=== PATIENT | female | born 1950 | race Hispanic/Latino ===

== ENCOUNTER → 2017-11-18 | Outpatient (CLI) | payer OTHER, MEDICARE | END | disposition home or self-care (01) | LOC: RAH 09:00 | PROVIDERS: ATTEND Family Medicine | DX: Z12.31 Encounter for screening mammogram for malignant neoplasm of breast (principal) | CPT/HCPCS: 77067 ==

== ENCOUNTER → 2018-11-29 | Outpatient (CLI) | payer OTHER, MEDICARE | END | disposition home or self-care (01) | LOC: RAH 08:06 | PROVIDERS: ATTEND Family Medicine | DX: Z12.31 Encounter for screening mammogram for malignant neoplasm of breast (principal) | CPT/HCPCS: 77067 ==

== ENCOUNTER → 2025-03-04 | Outpatient (CLI) | payer OTHER, MEDICAID ==
--- NOTE | 2025-03-04 16:07 | HMCIMG ---
MR BRAIN WO CON REASON: G45.9 Transient cerebral ischemic attack, unspecified TECHNIQUE: Routine cerebral imaging protocol was performed. Exam was performed without IV contrast. STUDIES FOR COMPARISON: None. FINDINGS: There are diffusely generous ventricles and sulci. Findings are consistent with diffuse global atrophy. There are also focal areas of increased signal intensity within the deep central white matter consistent with small vessel disease. There are no focal mass lesions. There are no abnormal fluid collections. There is no evidence of intracranial hemorrhage. Diffusion-weighted images are negative for acute ischemic event. Posterior fossa and brainstem structures appear normal as well. Calvarium appears unremarkable. Extracranial soft tissues appear normal as well. IMPRESSION: 1. Diffusely generous ventricles and sulci consistent with a component of global atrophy. 2. No acute finding, no focal lesion identified.
--- NOTE | 2025-03-04 16:09 | HMCIMG ---
US CAROTID DUPLEX REASON: TIA TECHNIQUE: Exam was performed using spectral analysis and color flow imaging. FINDINGS: Color flow Doppler ultrasound shows normal-appearing bifurcations. There is no anatomic evidence of significant focal narrowing. Flow velocities and velocity ratios appear normal throughout. There is antegrade flow in both vertebral arteries. RIGHT CAROTID: CCA: 58 cm/sec ICA: 80 cm/sec Ratio: ICA/CCA: 1.4 ECA: 55 cm/sec Vertebral artery: 53 cm/sec LEFT CAROTID: CCA: 45 cm/sec ICA: 65 cm/sec Ratio: ICA/CCA: 1.4 ECA: 57 cm/sec Vertebral artery: 41 cm/sec IMPRESSION: Normal bilateral carotid Doppler ultrasound.
== END | disposition home or self-care (01) ==
LOC: RAH 08:47
PROVIDERS: ATTEND Family Medicine
DX: G45.9 Transient cerebral ischemic attack, unspecified (principal)
CPT/HCPCS: 70551; 93880